=== PATIENT | female | born 1995 | race Caucasian/White ===

== ENCOUNTER 2016-06-21 19:29 | Emergency (ER) | payer SELFPAY ==
[~2016-06-21] VITALS: Ht 160 cm; Wt 56.8 kg
[2016-06-21 19:50] VITALS: BP 135/82
== END 2016-06-21 21:14 | disposition left against medical advice (07) ==
LOC: EMS 19:48
DX: L50.0 Allergic urticaria (principal); Z53.21 Procedure and treatment not carried out due to patient leaving prior to being seen by health care provider